=== PATIENT | female | born 1935 | race Two or more races ===

== ENCOUNTER 2019-10-27 02:07 | Emergency (ER) | payer BC, MEDICARE ==
[~2019-10-27] VITALS: Ht 160 cm; Wt 48.0 kg
[2019-10-27] MEDS ORDERED: NA PHOS,M-B/NA PHOS,DI-BA ENEMA 118ML PR ONE (02:45)
[2019-10-27 03:09] LABS: BASOPHILS % 0.7 % (0.0-2.0); EOSINOPHILS % 1.6 % (0.0-5.0); HEMATOCRIT. 40.5 % (36.0-48.0); HEMOGLOBIN. 13.7 g/dL (12.0-16.0); LYMPHOCYTES % 30.5 % (20.0-50.0); MEAN CORPUSCULAR HEMOGLOBIN 29.4 pg (28.0-32.0); MEAN CORPUSCULAR VOLUME 87.3 fL (81.0-99.0); MEAN PLATELET VOLUME 8.3 fl (7.4-10.4); MONOCYTES % 7.6 % (2.0-8.0); NEUTROPHILS % 59.6 % (40.0-76.0); PLATELET 272 x1000/uL (130-400); RED BLOOD CELL COUNT 4.64 mill/uL (4.2-5.4); RED CELL DISTRIBUTION WIDTH 14.4 % (11.6-14.6)
[2019-10-27 03:15] LABS: CHLORIDE 105 mEq/L (98-107)
[2019-10-27] MEDS ORDERED: MAGNESIUM CITRATE 300ML SOLUTION PO ONE (05:30)
[2019-10-27 05:50] VITALS: BP 138/76
== END 2019-10-27 06:10 | disposition home or self-care (01) ==
LOC: ER 02:07
DX: R00.2 Palpitations (principal); K59.00 Constipation, unspecified; Z87.891 Personal history of nicotine dependence; Z98.890 Other specified postprocedural states; Z88.0 Allergy status to penicillin
CPT/HCPCS: 36415; 71045; 80053; 83880; 84443; 84484; 85025; 93005; 99285